=== PATIENT | female | born 1940 | race Caucasian/White ===

== ENCOUNTER 2025-06-07 07:06 | Day surgery (SDC) | payer MEDICARE, OTHER ==
[~2025-06-07] VITALS: Ht 160 cm; Wt 79.7 kg
[2025-06-07] VITALS (12 sets, daily range): BP systolic 102–150; BP diastolic 68–88; PULSE 59–82; RESP 10–14; TEMP 97.9; O2SAT 94–98
--- NOTE | 2025-06-07 07:35 | ELECTROCARDIOGRAPH REPORT ---
[facility] Test Date: 2025-06-07 Test Time: 07:28:50 Pat Name: MIKE ARGUETA Department: [facility] Patient ID: [facility]-[id number] Room: Gender: F Territory Representative: ISAEL : 1940 Requested By: JUSTIN GUEVARA Order Number: [id number] Reading MD: Dr. Pipo Villagran Measurements Intervals [place] Rate: 86 P: 0 [place]: 0 QRS: 69 QRSD: 84 T: 71 QT: 372 QTc: 445 Interpretive Statements Atrial fibrillation Low voltage, extremity and precordial leads Borderline ST depression, anterolateral leads Electronically Signed On 06-07-2025 12:41:[address] Pipo Villagran Please click the below link to view image of tracing.
[2025-06-07] MEDS ORDERED: ATOR40TA72 PO (07:55)
[2025-06-07] MEDS ORDERED: SERT-432 PO (07:55)
[2025-06-07] MEDS ORDERED: TRAZ-251 PO (07:55)
[2025-06-07] MEDS ORDERED: ASPI-1264 PO (07:55)
[2025-06-07] MEDS ORDERED: DORZ10DR26 EACHEYE (07:57)
[2025-06-07] MEDS ORDERED: LATA2.5D7 EACHEYE (07:57)
[2025-06-07 08:02] LABS: MEAN PLATELET VOLUME 8.6 FL (7.4-10.4); RED CELL DISTRIBUTION WIDTH 15.7 % (11.5-14.5)
[2025-06-07] MEDS: sodium bicarbonate 1meq/ml syr 150 ML in dextrose 5%-water 1,000 ML IV ONE (08:04)
[2025-06-07 08:13] LABS: CREATININE 0.73 MG/DL (0.40-0.90); TOTAL CARBON DIOXIDE 24.9 MMOL/L (24-32); eCRCL 46 ML/MIN; eGFR 76 ML/MIN
[2025-06-07] MEDS ORDERED: iohexol 350 MG/ML 50ML vial IV ONE (08:14)
[2025-06-07] MEDS ORDERED: LIDOcaine 1% 30ml preserv. free vial ONE (08:14)
[2025-06-07] MEDS ORDERED: heparin 1,000unit/ml 10ml vial 10 ML ONE (08:14)
[2025-06-07] MEDS ORDERED: midazolam 1 mg/ML 2ml injection ONE ×2 (08:15→08:51)
[2025-06-07] MEDS ORDERED: fentaNYL/PF 50MCG/1 ML 2ML syringe ONE (08:15)
[2025-06-07 08:29] LABS: INR 1.0 INR
[2025-06-07] MEDS ORDERED: HYDROcodone/acetaminophen 10/325mg tab PO PRN (10:30)
[2025-06-07] MEDS ORDERED: ondansetron/PF 4mg/2ml inj IV PRN (10:30)
[2025-06-07] MEDS ORDERED: HYDROcodone/acetaminophen 5mg/325mg tablet PO PRN (10:30)
--- NOTE | 2025-06-07 10:39 | CARDIOLOGY REPORT ---
DATE OF SERVICE: 06/07/2025 DICTATING PHYSICIAN: JUSTIN GUEVARA DO CARDIAC CATHETERIZATION REPORT REFERRING PHYSICIAN: Orville Davis MD CLINICAL HISTORY: This 85-year-old woman has recently been hospitalized at [facility] in [place] for congestive heart failure. She was in atrial fibrillation. The fibrillation has been controlled. She was adequately diuresed, but an echocardiogram has also demonstrated severe aortic stenosis. She is here today for cardiac catheterization to confirm the presence of and to look for evidence of coronary artery disease. PROCEDURES PERFORMED: * Right heart catheterization * Left heart catheterization * Left ventriculography * Selective coronary arteriography * Percutaneous arteriotomy closure (Perclose) * 45 minutes conscious sedation and supervision DESCRIPTION OF PROCEDURE: The patient was sedated with fentanyl and Versed. He was then prepared and draped in the usual manner. The right inguinal area was liberally infiltrated with 1% lidocaine. Using a micropuncture technique, an 8-Greek sheath was placed in the common femoral vein and a 7F sheath was placed in the common femoral artery. 3000 units of heparin were given. Right heart catheterization was performed using a 7.5-Greek [place]-Tomy catheter. Cardiac output was determined by thermal dilution technique. Left heart catheterization and left ventriculography were performed using a Arena pigtail catheter. Coronary arteriography was performed using 6-Greek #4 left and right Mario catheters. The arterial puncture site was successfully Perclosed. Direct pressure was applied to the venous access site. RESULTS: HEMODYNAMIC DATA: The mean right atrial pressure was 14 mmHg. Right ventricular pressure was 40/17 mmHg. Mean pulmonary capillary wedge pressure was 20 mmHg. Left ventricular end-diastolic pressure was 20 mmHg. Pulmonary arterial pressure was 43/22 mmHg. Cardiac output by thermal dilution technique was 3.2 liters per minute. There was a 19 mm simultaneously recorded gradient across the aortic valve. The calculated valve area was 0.72 cm2. LEFT VENTRICULOGRAM: The left ventriculogram was technically satisfactory. In the setting of atrial fibrillation, the visually estimated ejection fraction was about 40%. CORONARY ARTERIOGRAPHY: The coronary arteriograms were technically satisfactory. The patient had a right dominant system. LEFT MAIN CORONARY ARTERY: The left main was a large unobstructed vessel bifurcating into the left anterior descending and circumflex coronary arteries. LEFT ANTERIOR DESCENDING CORONARY ARTERY: The LAD was a large transapical vessel with a medium-sized first diagonal taking its origin proximally. There were no other diagonals of any significant size and the LAD had no obstructive lesions. CIRCUMFLEX CORONARY ARTERY: The circumflex was a large vessel immediately bifurcating into an obtuse marginal that had the distribution of an intermediate artery. This vessel was medium in size and not obstructed. There was a very large second obtuse marginal and a very small and short third obtuse marginal. There were no posterolateral branches. There were no obstructive lesions in the entire circumflex coronary system. RIGHT CORONARY ARTERY: The right coronary artery was a large main stem vessel. There was a medium-sized relatively short posterior descending branch, a small caliber first posterolateral branch and a small to medium-sized second posterolateral. There were no obstructive lesions in the right coronary artery. CONCLUSIONS: * Severe aortic stenosis manifested as a valve area of 0.72 cm2. * At most mild pulmonary hypertension. Pulmonary arterial pressure was 43/22 mmHg. * Left ventricular function was moderately reduced. There was generalized mild hypokinesis and an estimated LVEF of 40% in the setting of atrial fibrillation. * No obstructive coronary artery disease. PLAN: Ongoing medical therapy with referral to consideration of TAVR. JUSTIN GUEVARA DO TID: [id number] RECEIPT: [id number] EDWARD/KYLEE
[2025-06-07] MEDS ORDERED: metoprolol tartrate 1mg/ml inj IV PRN (13:35)
[2025-06-07] MEDS ORDERED: IODIXANOL 320 MG/ML INFUS..BTL 100ML IV ONE (14:15)
--- NOTE | 2025-06-08 11:40 | RADIOLOGY REPORT ---
Procedure: CT CTA TAVR Reason for study/Clinical History: TAVR consult, aortic stenosis Comparison Study: None Exam Date: 06/07/2025 02:16 PM TECHNIQUE: Multiplanar reformatted images were generated from volumetric data acquired on a multidetector CT scanner. Cardiac gating was utilized. Arterial phase images were obtained through the chest, abdomen and pelvis following intravenous administration of contrast material. 150 mL visipaque [address] dose reduction techniques were utilized. 3-D reconstructions were performed on an independent workstation. FINDINGS: Vascular: Aortic measurements: Aortic annulus: 25.6 x 20.9 mm Sinus of valsalva: right cusp findings 27.7 mm, left cusp 30.6 mm, non-coronary cusp 29.3 mm Right coronary distance: 15.4 mm Left coronary distance: 16.[address] junction 24.9 mm Ascending aorta 35.2 mm Aortic arch 26.7 mm Descending aorta 24.8 mm Minimal abdominal aorta 15.0 mm Right common iliac 8.23 mm, tortuosity index 1.08 Left common iliac 8.38 mm, tortuosity index 1.10 There is normal caliber of aorta. No aortic dissection. Aortic arch anatomy is interventional . No exophytic calcified or soft plaque. Eccentric plaque is identified throughout the aorta. There is normal dimension of the main pulmonary artery. Heart is normal in size. Mild coronary artery calcification. No pericardial effusion. Mediastinum: There is no significant intrathoracic or axillary lymphadenopathy by CT size criteria. Esophagus is patulous with mild diffuse circumferential thickening which may be seen with reflux esophagitis. Lungs: Expiratory phase appearance of the lungs. Respiratory motion artifact. There is an 8 mm subpleural right lower lobe nodule. 15.5 x 16.8 mm left suprahilar nodule. Pleura: No effusion or pneumothorax. Chest wall: There is a 2.3 cm left thyroid lesion, incompletely characterized by CT. Abdomen and Pelvis: Liver: Normal in appearance. Gallbladder: Layering tiny gallstones. Spleen: Normal in appearance. Pancreas: Normal in appearance. Adrenals: There is a 2.9 x 2.5 cm left adrenal nodule. Right adrenal is within normal limits. Kidneys: Symmetric enhancement with corticomedullary phase differentiation which limits assessment for renal neoplasm. Bowel: No findings of bowel obstruction. Bowel is incompletely evaluated without oral contrast material. Peritoneum: No free air or free fluid. Lymph nodes: No lymphadenopathy by CT size criteria. Pelvic structures: Urinary bladder is distended with high density material, most likely excreted contrast material. Bones: Status post left shoulder arthroplasty. Diffuse osseous demineralization which limits assessment. Remote rib fractures. IMPRESSION: 1. TAVR planning with vascular measurements as described above. 2. No exophytic calcified or soft plaque of the aorta. 3. There is a 16.8 mm left suprahilar lung nodule. 4. Per Fleischner guidelines, recommend further evaluation with PET/CT or tissue sampling. 5. There is a 2.9 cm left adrenal nodule. 6. Recommend further evaluation with CT or MRI adrenal protocol. 7. There is a 2.3 cm left thyroid lesion. 8. Recommend further evaluation with thyroid ultrasound.
== END 2025-06-07 16:15 | disposition home or self-care (01) ==
LOC: SSTAY O 07:06
PROVIDERS: ATTEND Internal Medicine Cardiovascular Disease
DX: I35.0 Nonrheumatic aortic (valve) stenosis (principal); E11.9 Type 2 diabetes mellitus without complications; E78.00 Pure hypercholesterolemia, unspecified; I27.20 Pulmonary hypertension, unspecified; M81.0 Age-related osteoporosis without current pathological fracture; F32.A Depression, unspecified; Z79.01 Long term (current) use of anticoagulants; Z79.899 Other long term (current) drug therapy; Z90.49 Acquired absence of other specified parts of digestive tract
CPT/HCPCS: 36415; 71275; 74174; 75572; 80048; 83735; 85025; 85610; 93005; 93460; 99152; 99153; A6258; C1751; C1760; C1769; C1887; C1894; J1644; J2003; J2250; J3010; J3490; J7030; J7070; Q0163; Q9967; Z7610

== ENCOUNTER 2025-06-17 11:18 | Outpatient (CLI) | payer MEDICARE, OTHER ==
[~2025-06-17] VITALS: Ht 160 cm; Wt 79.2 kg
[~2025-06-17 11:18] MED LIST: ASPI-1264 PO; ATOR40TA72 PO; DORZ10DR26 EACHEYE; LATA2.5D7 EACHEYE; SERT-432 PO; TRAZ-251 PO
[2025-06-17 13:23] VITALS: BP 134/102; PULSE 107; RESP 18; TEMP 97; O2SAT 96
--- NOTE | 2025-06-17 13:47 | CONSULTATION REPORT ---
History of Present Illness Providers to symptomatic aortic stenosis Refering MD: Henry Macias History of Present Illness 85 yo female with HLD and DM presents with progressive c/o fatigue and SOB over the past year requiring hospitalization. She was recently diagnosed with atrial fibrillation. Evaluation revealed critical aortic stenosis and the patient is now seen for evaluation regarding TAVR vs. SAVR. Allergies: Coded Allergies: No Known Allergies (Unverified , 06/07/25) Home Medications Home Medications Active Reported Latanoprost 0.005 % Drops EACHEYE Dorzolamide HCl 2 % Drops EACHEYE Aspirin* (Aspirin) 325 Mg Tablet 1 Tab PO DAILY 30 Days Atorvastatin Calcium 40 Mg Tablet 1 Tab PO QAM Trazodone HCl 50 Mg Tablet 2 Tab PO HS PRN Sertraline HCl 25 Mg Tablet 1 Tab PO DAILY Past Medical History Medical History Comment as per HPI Physical Exam Last Vital Signs Recorded: RN Vital Signs have been reviewed: Yes, Temperature: 97.0, Source: Temporal, Heart Rate: 107, Respiratory Rate: 18, BP: 134/102, Pulse Oximetry: 96, Weight: 79.200 General Appearance: alert, no apparent distress Neck: normal inspection Respiratory: lungs clear Chest: no accessory muscle use Cardiovascular: no edema, systolic murmur, irregularly irregular Extremities: normal range of motion, non-tender, no edema Neurologic: oriented x4 Review of Systems ROS ROS Comments: as per HPI Assessment/Plan Additional Plan 85 yo female with HLD and DM presents with progressive c/o fatigue and SOB over the past year requiring hospitalization. She was recently diagnosed with atrial fibrillation. Evaluation revealed critical aortic stenosis and the patient is now seen for evaluation regarding TAVR vs. SAVR. Echocardiogram shows an ROBERTO of 0.7 cm2 with a PV of 3m/s. EF of 40% and may account for low PV. I do not have a dimensionless index. I discussed with the patient and her daughter regarding options if AVR done for TAVR vs. SAVR. She does not want SAVR but will undergo emergency replacement if necessary. Dr. Macias will schedule for TAVR if appropriate. LEIDY TORO MD Jun 17, 2025 13:47
--- NOTE | 2025-06-17 15:17 | VASCULAR REPORT ---
Carotid Duplex Date: 06/17/2025 12:41 PM Clinical History: Preop TAVR Comparison: None Technique: Duplex Doppler evaluation of the extracranial carotid and vertebral arteries including color Doppler and spectral/pulsed waveform analysis was performed. Findings: Indications Preop for TAVR. Doppler Spectral Velocity Analysis Right Left pCCA 61/19 cm/s pCCA 60/15 cm/s dCCA 58/13 cm/s dCCA 44/17 cm/s ECA 61/ cm/s ECA 41/ cm/s pICA 34/10 cm/s pICA 35/13 cm/s Kyle 45/16 cm/s Kyle 43/20 cm/s dICA 56/24 cm/s dICA 64/27 cm/s Vert 28/11 cm/s Vert. 52/19 cm/s Subcl. 41/ cm/s Subcl. 64/ cm/s ICA/CCA ICA/CCA 1.07 Real-Time B-Mode Imaging Area Findings Right Left CCA Plaque Composition Intimal thickening Intimal thickening BIF Plaque Composition Intimal thickening Intimal thickening Vertebral Antegrade Antegrade Subclavian Multiphasic Multiphasic CONCLUSION No sonographon evidence of stenosis or occlusion in bilateral carotid arteries. All carotid arteries showed less than 50% stenosis. Antegrade flow noted in bilateral vertebral arteries. Multiphasic flow noted in bilateral subclavian arteries. Reference: Radiology 2003; 229:340-346
--- NOTE | 2025-06-17 21:04 | CONSULTATION REPORT ---
History of Present Illness Providers to CC CC: JUSTIN GUEVARA DO ~ Refering MD: Dr. Guevara History of Present Illness A Very pleasant 85yo woman with Hypertension, Hyperlipidemia, Atrial Fibrillation, Heart failure with mid-range ejection fraction, Severe Symptomatic Aortic Stenosis here to be evaluated in the TAVR clinic. She is accompanied by her daughter. States she has had increased shortness of breath over the last 1 year. She was recently hospitalized, diagnosed with mildly depressed ejection fraction in the setting of new onset atrial fibrillation, and also diagnosed with moderate to severe aortic stenosis. She underwent coronary angiography which was non- obstructive, however, continues to report increased fatigue and dyspnea. Per pt/daughter, can now walk ~ 20 feet before getting short of breath. She previously enjoys walking, hiking and had not had any issues. She denies any chest pain, syncope, dizziness/lightheadedness, bleeding, LE edema. Allergies: Coded Allergies: No Known Allergies (Unverified , 06/07/25) Active prescriptions Atorvastatin Zoloft ?Eliquis 5mg BID Home Medications Home Medications Active Reported Latanoprost 0.005 % Drops EACHEYE Dorzolamide HCl 2 % Drops EACHEYE Aspirin* (Aspirin) 325 Mg Tablet 1 Tab PO DAILY 30 Days Atorvastatin Calcium 40 Mg Tablet 1 Tab PO QAM Trazodone HCl 50 Mg Tablet 2 Tab PO HS PRN Sertraline HCl 25 Mg Tablet 1 Tab PO DAILY Past Medical History Medical History Comment 1. Severe, Symptomatic Aortic Stenosis 2. Hypertensive heart disease 3. Hyperlipidemia 4. Atrial fibrillation 5. Heart failure with mid-range Ejection Fraction Past Surgical History Surgical History Comment Denies any prior heart/lung surgeries Past Social History Social History Comment Denies tobacco or alcohol abuse Physical Exam Last Vital Signs Recorded: Temperature: 97.0, Source: Temporal, Heart Rate: 107, Respiratory Rate: 18, BP: 134/102, Pulse Oximetry: 96, Weight: 79.200 General Appearance: alert, no apparent distress Respiratory: lungs clear Cardiovascular: no edema, systolic murmur (IV/ SM RUSB/LUSB), irregularly irregular Peripheral Pulses: 2+ radial (R), 2+ radial (L) Gastrointestinal: bowels sounds present Extremities: no edema Neurologic: oriented x4 Psychiatric: normal mood/affect Review of Systems ROS ROS Comments: A 14-point review of systems is positive as above. The rest of the review of systems has been done and found to be unrevealing. Results Results/Orders Results/Orders Hg 14.2 HCt 41.9, Cr 0.73 Echocardiogram: LVEF 45-50%, PV 3.7 m/s, MG 35 mmHg, ROBERTO 0.6cm2. Trace AI. Moderate MR Coronary Angiogram: No significant obstructive CAD Carotid Ultrasound: No obstructive carotid disease EKG: Afib, QRS 84ms CT TAVR: Large Caliber vessels amenable to transfemoral transcatheter aortic valve replacement. Sinuses are large enough, coronaries are high enough. Assessment/Plan Problems/Diagnosis: (1) Aortic stenosis Assessment & Plan: A Very pleasant 85yo woman with Hypertension, Hyperlipidemia, Atrial Fibrillation, Heart failure with mid-range ejection fraction, Severe Symptomatic Aortic Stenosis here to be evaluated in the TAVR clinic. She has severe, symptomatic aortic stenosis with NYHA Class III symptoms of dyspnea on exertion, fatigue. Additionally, she has a mildly depressed ejection fraction with persistent Atrial fibrillation. Repeat Echocardiogram today reveals peak velocity of ~ 3.7 m/s (beat-beat variability due to Afib) with a valve area of 0.6 cm2/m2. Patient appears to be a good candidate for a transfemoral transcatheter aortic valve replacement --Will plan for a 23mm valve via either femoral approach, to be scheduled soon. Dr. Guevara We thank you for allowing us the opportunity to help with the patient. They will see you back in the office shortly. THEODORE WELLS MD Jun 17, 2025 21:04
--- NOTE | 2025-06-18 18:08 | CARDIOLOGY REPORT ---
APPROVED REPORT EXAM: Comprehensive 2D, Doppler, and color-flow Echocardiogram. Patient Location: OUT-PATIENT Blood Pressure: 123 / 76 mmHg Heart Rate: 93-130 bpm Rhythm: ATRIAL FIBRILLATION WITH INTERMITTENT RVR Indications REASSESS AORTIC STENOSIS - ? TAVR KNOWN LFLG SEVERE AORTIC STENOSIS ATRIAL FIBRILLATION WITH RVR SHORT OF BREATH X 3 MOS - HOME O2 - 2L Wellness Manager: Frederick KING MD Previous echo: 04/21/25 [facility] EF: 50%?TDS; ROBERTO 0.7CMSQ; PKV: 3.00; GRAD: ?; LVOT 1.99; Joy; modMR; RVSP: NR 2D Dimensions RVDd 3.0 cm LVOT Diameter 1.88 (1.8-2.4cm) M-Mode Dimensions Left Atrium(MM) 3.86 (2.5-4.0cm) IVSd 0.89 (0.7-1.1cm) LVDd 4.51 (4.0-5.6cm) Aortic Root 2.86 (2.2-3.7cm) PWd 1.11 (0.7-1.1cm) Aortic Cusp Exc 0.57 (1.5-2.0cm) IVSs 1.24 cm LVDs 3.43 (2.0-3.8cm) FS (%) 24 % PWs 1.22 cm ESV(Teich) 48.5 ml LVEF(%) 48 (>50%) Aortic Valve AoV Peak Gary. 369.9 cm/s AoV VTI 74.0 cm AO Peak GR. 53.7 mmHg AO Mean GR. 35 mmHg LVOT VTI 15.69 cm LVOT Peak Gary. 79.2 cm/s ROBERTO (VMAX) 0.60 cm2 ROBERTO (VTI) 0.59 cm2 Tricuspid Valve TR P. Velocity 346 cm/s RAP ESTIMATE 10 mmHg TR Peak Gr. 48 mmHg RVSP 58 mmHg LEFT VENTRICLE Normal LV size with moderately reduced function. Mild concentric hypertrophy. LVEF is 45-50%. (function improves with slower HR). RIGHT VENTRICLE RV is normal size and function. Elevated right heart pressures as noted above. ATRIA The left atrium size is normal. AORTIC VALVE Probable trileaflet AV appears heavily calcified with severe low flow/ low gradient stenosis demonstrated by reduced excursion and increased transvalvular and ascending aorta turbulance. ROBERTO: 0.6cmsq; Pkv:3.70 m/sec; Gradients: 54 / 35 mmHG. Trace insufficiency by color and spectral flow Doppler. Measurements are multi sampled averages due to variable rhythm. Stenosis severity is likely severe, but fails to meet criteria due to low flow / volume, low gradient conditions. MITRAL VALVE Mild MV annular calcification without stenosis. Moderate (2+) regurgitation by color and spectral flow Doppler. TRICUSPID VALVE TV appears structurally normal with moderate regurgitation by color and spectral flow Doppler. PULMONIC VALVE Normal PV without stenosis, physiologic insufficiency by color and spectral flow Doppler. GREAT VESSELS Aortic root is normal in size. Ascending aorta is normal in size. PERICARDIUM Normal pericardium. No effusion. Conclusion Normal LV size with moderately reduced function. Mild concentric hypertrophy. LVEF is 45-50%. (function improves with slower HR). RV is normal size and function. Elevated right heart pressures with an RVSP of 58 mmHg. The left atrium size is normal. Probable trileaflet AV appears heavily calcified with severe low flow/ low gradient stenosis demonstrated by reduced excursion and increased transvalvular and ascending aorta turbulance. ROBERTO: 0.6cmsq; Pkv:3.70 m/sec; Gradients: 54 / 35 mmHG. Trace insufficiency by color and spectral flow Doppler. Measurements are multi sampled averages due to variable rhythm. Stenosis severity is likely severe, but fails to meet criteria due to low flow / volume, low gradient conditions. Mild MV annular calcification without stenosis. Moderate (2+) regurgitation by color and spectral flow Doppler. TV appears structurally normal with moderate regurgitation by color and spectral flow Doppler. Normal PV without stenosis, physiologic insufficiency by color and spectral flow Doppler. Normal pericardium. No effusion.
== END 2025-06-17 23:59 | disposition home or self-care (01) ==
LOC: VAS 11:18
PROVIDERS: ATTEND Internal Medicine Cardiovascular Disease
DX: I08.8 Other rheumatic multiple valve diseases (principal); I35.0 Nonrheumatic aortic (valve) stenosis; R06.02 Shortness of breath; I65.29 Occlusion and stenosis of unspecified carotid artery
CPT/HCPCS: 93306; 93880

== ENCOUNTER 2025-07-01 05:39 | Inpatient (IN) | payer MEDICARE, OTHER ==
[2025-06-24 14:09] LABS: MEAN PLATELET VOLUME 8.1 FL (7.4-10.4); PRE OP HEMATOCRIT 38.1 % (35.0-45.0); PRE OP HEMOGLOBIN 13.1 g/dL (12.0-16.0); PRE OP PLATELET COUNT 276 X10'3 (140-440); PRE OP WHITE BLOOD COUNT 6.0 10'3 (4.8-10.8); RED CELL DISTRIBUTION WIDTH 16.6 % (11.5-14.5)
[2025-06-24 14:17] LABS: LEUKOCYTE ESTERASE ,URINE SMALL (Neg); NITRITES, URINE NEGATIVE (Neg); OCCULT BLOOD,URINE NEGATIVE (Neg)
[2025-06-24 14:23] LABS: UA COLLECTION TYPE NON-SPECIFIED
[2025-06-24 14:24] LABS: AMORPHOUS PHOSPHATES 1+; SQUAMOUS EPITHELIAL CELL,UR FEW /LPF (FEW)
[2025-06-24 14:25] LABS: PRE OP INR 1.0 INR; PRE OP PARTIAL THROMB. TIME 29.0 SECONDS (22-32); PRE OP PROTIME 10.5 SECONDS (9.0-12.0)
--- NOTE | 2025-06-24 14:34 | RADIOLOGY REPORT ---
CHEST RADIOGRAPH INDICATION: PREOP TECHNIQUE: Frontal and lateral view of the chest was obtained COMPARISON: None FINDINGS: Lines and Tubes: None Lungs: Clear Pleura: No effusion. No pneumothorax. Cardiomediastinal contours: Unremarkable Bones: Unremarkable. Left glenohumeral joint hardware s/p reverse total shoulder arthroplasty. IMPRESSION: 1. No evidence of acute disease.
[2025-06-24 14:41] LABS: CREATININE 0.67 MG/DL (0.40-0.90); PRE OP ALT 37 U/L (30-65); PRE OP ANION GAP 9 (8-16); PRE OP AST 23 U/L (10-37); PRE OP BILIRUB, TOTAL 0.7 MG/DL (0.0-1.0); PRE OP GLUCOSE 111 MG/DL (70-104); PRE OP POTASSIUM 3.7 MMOL/L (3.4-5.1); PRE OP SODIUM 143 MMOL/L (135-145); PRO BRAIN NATRIURETIC PEPTIDE 1545 PG/ML (0-450); TOTAL CARBON DIOXIDE 27.9 MMOL/L (24-32); eGFR 83 ML/MIN
--- NOTE | 2025-06-24 14:47 | ELECTROCARDIOGRAPH REPORT ---
[facility] Test Date: 2025-06-24 Test Time: 14:04:18 Pat Name: MIKE ARGUETA Department: PRE/OP CARDIOLOGY Room: Gender: F Shirt Creaser: ELBERT : 1940 Requested By: LUDWIN PURI Order Number: [id number] Reading MD: Dr. Jade Macias Measurements Intervals [place] Rate: 121 P: 0 TN: 0 QRS: 88 QRSD: 82 T: -5 QT: 365 QTc: 518 Interpretive Statements Atrial fibrillation Borderline right axis deviation Low voltage, precordial leads Repolarization abnormality, prob rate related Electronically Signed On 06-24-2025 16:28:[address] Jade Macias Please click the below link to view image of tracing.
[~2025-07-01] VITALS: Ht 160 cm; Wt 79.2 kg
[2025-07-01] VITALS (33 sets, daily range): BP systolic 108–149; BP diastolic 64–102; PULSE 86–118; RESP 12–22; TEMP 97.2–98; O2SAT 94–100
[2025-07-01] MEDS: nitroPRUSSIDE (NIPRIDE) (200MCG/ML) 100ML Drip IV SCH (05:30)
[2025-07-01] MEDS: phenylephrine inj 50 MG in normal saline 250ml IV solN IV SCH (05:30)
[2025-07-01] MEDS: ceFAZolin 2gm/dext,iso 50mL 50 ML IV ONE (05:30)
[2025-07-01] MEDS: ringers solution, lacted 1,000 ML IV SCH ×2 (06:37→07:50)
[2025-07-01] MEDS: VANCOMYCIN/H2O 1.5g/300mL PB 300 ML IV ONE (06:38)
[2025-07-01] MEDS ORDERED: protamine sulfate 10mg/ml inj. ONE (06:47)
[2025-07-01] MEDS ORDERED: LIDOcaine 1% (10mg/ml) 2ml vial ONE (07:45)
[2025-07-01] MEDS ORDERED: morphine 4 MG/ML inj SYRINge IV PRN (07:50)
[2025-07-01] MEDS ORDERED: hydrALAZINE 20mg/ml inj. IV PRN ×2 (07:50→09:40)
[2025-07-01] MEDS ORDERED: labetalol 20mg/4ml (5mg/ml) syringe IV PRN ×2 (07:50→09:40)
[2025-07-01] MEDS ORDERED: ondansetron/PF 4mg/2ml inj IV PRN ×2 (07:50→09:40)
[2025-07-01] MEDS ORDERED: fentaNYL/PF 50MCG/1 ML 2ML syringe IV PRN ×2 (07:50)
[2025-07-01] MEDS ORDERED: fentaNYL/PF 50MCG/1 ML 2ML syringe ONE (08:32)
[2025-07-01] MEDS ORDERED: heparin 1,000 UNITS/NS 500ml 1,500 ML ONE (08:34)
[2025-07-01] MEDS ORDERED: propofol inj 20 ML IV ONE (08:35)
[2025-07-01] MEDS ORDERED: midazolam 1 mg/ML 2ml injection ONE (08:35)
[2025-07-01] MEDS ORDERED: heparin 1,000unit/ml 10ml vial 10 ML ONE (08:48)
[2025-07-01] MEDS ORDERED: magnesium sulf-water 2g/50mL 50 ML IV PRN (09:40)
[2025-07-01] MEDS ORDERED: docusate sod 100mg capsule PO PRN (09:40)
[2025-07-01] MEDS ORDERED: potassium CL 10mEq/100ml bag 100 ML IV PRN (09:40)
[2025-07-01] MEDS ORDERED: magnesium sulf-water 4G/100mL 100 ML IV PRN (09:40)
[2025-07-01] MEDS ORDERED: potassium Cl 20 mEq SR tablet PO PRN (09:40)
[2025-07-01] MEDS ORDERED: potassium Cl 40MEQ/1/2NS 520ml 520 ML IV PRN (09:40)
[2025-07-01] MEDS ORDERED: potassium Cl 20mEq/100mL bag 100 ML IV PRN (09:40)
[2025-07-01] MEDS ORDERED: pantoprazole 40mg Tablet.DR PO PRN (09:40)
[2025-07-01] MEDS ORDERED: ALPRAZolam 0.25mg tablet PO PRN (09:40)
[2025-07-01] MEDS ORDERED: potassium Cl 40MEQ/270ML bag 250 ML IV PRN (09:40)
[2025-07-01] MEDS ORDERED: HYDROcodone/acetaminophen 5mg/325mg tablet PO PRN (09:40)
--- NOTE | 2025-07-01 09:42 | OPERATIVE REPORT ---
Operative Report Providers to CC CC: JUSTIN GUEVARA Date of Procedure: Jul 01, 2025 Pre-Operative Diagnosis: Severe Aortic Stenosis Post-Operative Diagnosis SAME as PRE-Op Procedure Performed 1. Ultrasound-guided access, bilateral femoral vessels. 2. Bilateral femoral angiography. 3. Ascending aortography. 4. Temporary transvenous pacer to the RV apex. 5. Balloon Aortic Valvuloplasty with a 18mm balloon 6. Placement of a 23 mm Tripp S3 Resilia valve. Surgeon: Theodore Macias MD Stage Driver MD Dr. Fernando Garcia MD Anesthesiologist: Rafiq Valdivia Type of Anesthesia: General Findings: Severe Aortic Stenosis Complications None Prosthetics\Implants used: Tripp 23mm S3 Resilia Estimated Blood Loss: Minimal Specimen Removed: None Description of Procedure: The patient was brought to the hatchery laborer in a fasting state. They underwent general anesthesia. Ultrasound was used to guide access to the bilateral femoral vessels, 7-Sammarinese sheath, left femoral artery, 6-Sammarinese sheath, right femoral artery and left femoral vein. Bilateral femoral angiograms were obtained. Heparin was given to maintain an ACT over 250 seconds. Two jaylin-cross Perclose devices were placed on the right. We upsized to an 8- Sammarinese sheath. Two pigtail catheters placed in the ascending aorta. Ascending aortography done to determine the angle of deployment. Temporary transvenous pacer to the RV apex and confirmed capture. We upsized an 8-Sammarinese sheath to a 14-Sammarinese Tripp eSheath on the right. We crossed the aortic valve using a straight stiff exchange length Terumo wire supported by a 6-Sammarinese AL1 catheter. LV AO pressures were recorded. A Badge extra support wire was placed in the left ventricle. Next, an 18mm balloon was brought into position and under rapid ventricular pacing, it was inflated. Subsequently, A 23 mm Tripp S3 Resilia valve was brought to position and under rapid right ventricular pacing was deployed. Post-procedure, there was trivial AI and no residual . Guidewires and balloons were removed at this time. The temporary pacer was removed. The 14-Sammarinese Tripp eSheath was removed and the Perclose devices tied with adequate hemostasis. The arterial sheath on the left was removed and a single Perclose tied. The venous sheath on the left was removed and a single Angioseal used for hemostasis. Protamine was given to reverse the effects of heparin. The patient was stable post-procedure. Good pulses in the legs and no evidence of bleeding, transferred to the PACU in stable condition. HEMODYNAMICS: See procedure log RESULTS: 1. Successful balloon aortic valvuloplasty with a 18 mm balloon. 2. Successful placement of a 23 mm Tripp S3 Resilia valve, right transfemoral approach, two perclose devices. ASA 81mg QD 3. Acute on chronic systolic heart failure, LVEDP 25mmHg. Resume GDMT 4. Afib: Cont rate control Patient will be watched in the recovery area until stable, then transferred to telemetry at that time. THEODORE MACIAS MD Jul 01, 2025 09:42
--- NOTE | 2025-07-01 09:52 | ELECTROCARDIOGRAPH REPORT ---
[facility] Test Date: 2025-07-01 Test Time: 09:51:10 Pat Name: MIKE ARGUETA Department: [facility] IN Room: [place] [address] Gender: F Drop Clipper: ELBERT : 1940 Requested By: THEODORE MACIAS Order Number: [id number] Reading MD: Dr. Jade Macias Measurements Intervals [place] Rate: 118 P: 0 DE: 0 QRS: 85 QRSD: 77 T: 45 QT: 439 QTc: 616 Interpretive Statements Atrial fibrillation Borderline right axis deviation Borderline low voltage, extremity leads Non specific ST depression, anterolateral leads Prolonged QT interval Electronically Signed On 07-01-2025 15:05:[address] Jade Macias Please click the below link to view image of tracing.
[2025-07-01] MEDS: normal saline 1000ml 1,000 ML IV SCH (13:02)
[2025-07-01] MEDS: acetaminophen 1,000mg/100ml IV 100 ML IV PRN (13:03)
--- NOTE | 2025-07-01 15:04 | CARDIOLOGY REPORT ---
APPROVED REPORT EXAM: Focused, limited intraprocedural transthoracic 2D, spectral and color flow Doppler echocardiogram during TAVR deployment. Patient Location: [facility] Blood Pressure: 140/100 mmHg Heart Rate: 110-120s bpm Rhythm: ATRIAL FIBRILLATION Indications SEVERE AORTIC STENOSIS BAV: 18 mm True Dilatation balloon 23 mm Tripp Jeremy 3 Ultra RESILIA Bioprosthetic TAVR KNOWN LFLG SEVERE AORTIC STENOSIS ATRIAL FIBRILLATION SHORTNESS OF BREATH XX3 MONTHS - HOME O2 - 2L Supervisor [employer]: Frederick Hays MD / Interventionalist: Henry Macias MD and Ashlyn Guajardo MD. / Surgeon: Tulio Thompson MD. / Device rep: Roopa Meeks ELS Previous echo: 06/17/25 [facility] (EF 45-50%, ROBERTO 0.6 cmsq, pkV 3.70 m/s, grad 54 / 35 mmHBg, trace AI, mod (2+) MR, mod TR) LEFT VENTRICLE Normal LV size and mildly reduced function. Mild concentric hypertrophy. LVEF is 45-50%. RIGHT VENTRICLE RV appears mildly dilated with normal contractility. RVSP is estimated at 68 mmHg. ATRIA LA appears mildly dilated. AORTIC VALVE Trileaflet AV appears severely calcified with significant stenosis demonstrated by reduced excursion and increased transvalvular and ascending aorta turbulance. ROBERTO: 0.60 cmsq; Pkv: 3.66 m/sec; Gradients: 54 / 31 mmHG. Trace insufficiency. Stenosis severity is likely severe, but fails to meet criteria due to low flow, low gradient conditions. BAV: 18 mm True Dilatation balloon. POST DEPLOYMENT (LOOP: 43): 23 mm Tripp Jeremy 3 Ultra Resilia bioprosthetic TAVR appears well seated with normal function. Trace paravalvular leak present at 12 and 6 o'clock in TTE SAX BASE by color and spectral flow Doppler. ROBERTO is measured at 2.50 cmsq. Peak / mean gradients of 8 / 4 mmHG. Peak velocity is measured at 1.43 m/sec. MITRAL VALVE Mild MV annular calcification without stenosis. Mild regurgitation by color and spectral flow Doppler. TRICUSPID VALVE TV appears structurally normal with moderate regurgitation by color and spectral flow Doppler. PERICARDIUM Normal pericardium. No effusion.
[2025-07-01] MEDS: sod chloride 0.9% 10ml flush syringe IV SCH (16:00)
[2025-07-01] MEDS: metoprolol succinate 25mg (24-HOUR) SR. Tablet PO SCH (17:13)
[2025-07-01] MEDS: ceFAZolin 1GM/D5W- ADD-VANTAGE 50 ML IV SCH (19:39)
[2025-07-01] MEDS: VANCOMYCIN/H2O 1.5g/300mL PB 300 ML IV SCH (21:49)
[2025-07-01] MEDS: latanoprost 0.005% 2.5ml ophthalmic drops EACHEYE SCH (21:51)
[2025-07-01] MEDS: dorzolamide 2% ophthalmic drops 10ml EACHEYE SCH (21:51)
[2025-07-02 02:00] VITALS: BP_SYST 106; BP_SYST 133; BP_DIAS 78; BP_DIAS 92; PULSE 76; PULSE 92; RESP 13; RESP 15; TEMP 97; TEMP 97.4; O2SAT 92; O2SAT 96
[2025-07-02] MEDS: ondansetron/PF 4mg/2ml inj IV PRN (05:05)
[2025-07-02 07:00] VITALS: BP 126/73; PULSE 78; RESP 16; TEMP 97.4; O2SAT 94
[2025-07-02 07:30] LABS: MEAN PLATELET VOLUME 8.2 FL (7.4-10.4); RED CELL DISTRIBUTION WIDTH 17.3 % (11.5-14.5)
[2025-07-02 07:52] LABS: CREATININE 0.68 MG/DL (0.40-0.90); PRO BRAIN NATRIURETIC PEPTIDE 1578 PG/ML (0-450); TOTAL CARBON DIOXIDE 28.6 MMOL/L (24-32); eCRCL 49 ML/MIN; eGFR 82 ML/MIN
[2025-07-02 08:00] VITALS: RESP 16; O2SAT 94
--- NOTE | 2025-07-02 09:02 | ELECTROCARDIOGRAPH REPORT ---
[facility] Test Date: 2025-07-02 Test Time: 09:01:18 Pat Name: MIKE ARGUETA Department: [facility] 3S Room: [place] [address] A Gender: F [employer]ging Press Setter Up: ELBERT : 1940 Requested By: THEODORE WELLS Order Number: [id number] Reading MD: Dr. JOSIAS Isabel Measurements Intervals Hoffman Rate: 70 P: 0 WA: 0 QRS: 79 QRSD: 89 T: 45 QT: 446 QTc: 482 Interpretive Statements Atrial fibrillation Low voltage, extremity and precordial leads Electronically Signed On 07-02-2025 20:54:[address] JOSIAS Isabel Please click the below link to view image of tracing.
--- NOTE | 2025-07-02 09:04 | RADIOLOGY REPORT ---
CHEST RADIOGRAPH INDICATION: s/p TAVR TECHNIQUE: Single frontal view of the chest was obtained COMPARISON: DI CHEST,TWO VIEWS on DOS: 06/24/25 FINDINGS: Lines and Tubes: None Lungs: Congestion Pleura: No effusion. No pneumothorax. Cardiomediastinal contours: Post TAVR Bones: Unremarkable IMPRESSION: Post TAVR with mild congestion.
--- NOTE | 2025-07-02 11:25 | CARDIOLOGY REPORT ---
APPROVED REPORT EXAM: Limited 2D, Doppler, and color-flow Echocardiogram. Patient Location: [facility] Blood Pressure: 133/92 mmHg Heart Rate: 97 bpm Indications ONE DAY FOLLOW-UP TAVR 23 mm Tripp Jeremy 3 Ultra RESILIA Bioprosthetic TAVR Legal Word Processor: Frederick Hays MD Previous echo: 07/01/25, [facility], EF: 45-50; ROBERTO: 2.50; GRAD: 8 / 4; Peak v: 1.43 2D Dimensions IVSd 0.9 (0.7-1.1cm) LVDd 3.6 cm PWd 0.9 (0.7-1.1cm) IVSs 1.4 (0.8-1.2cm) LVDs 2.8 (2.5-4.0cm) PWs 1.3 (0.8-1.2cm) LVOT Diameter 2.30 (1.8-2.4cm) LVEF(%) 48.2 (>50%) IVC 18.23 mm FS (%) 23.7 % SV 26.7 ml CO 2.0 L/min M-Mode Dimensions Left Atrium(MM) 3.38 (2.5-4.0cm) Aortic Root 2.31 (2.2-3.7cm) Aortic Valve AoV Peak Gary. 169.6 cm/s AoV VTI 37.6 cm AO Peak GR. 11.5 mmHg AO Mean GR. 7 mmHg LVOT VTI 22.75 cm LVOT Peak Gary. 121.0 cm/s ROBERTO(VTI)/BSA 2.51 cm2/m2 ROBERTO (VTI) 2.51 cm2 AV DI 0.60 % Tricuspid Valve TR P. Velocity 279 cm/s RAP ESTIMATE 10 mmHg TR Peak Gr. 31 mmHg RVSP 41 mmHg LEFT VENTRICLE Normal LV size and wall thickness. Overall systolic function is mildly decreased. LVEF is 45-50%. RIGHT VENTRICLE Right ventricle is moderately dilated with decreased function. Elevated right heart pressures with an RVSP of 41 mmHg. ATRIA The left atrium size is normal. AORTIC VALVE 23 mm Tripp Jeremy 3 Ultra Resilia bioprosthetic TAVR appears well seated with normal function. Trace paravalvular leak present at 12 o'clock in TTE SAX BASE by color and spectral flow Doppler. ROBERTO is measured at 2.51 cmsq. Peak / mean gradients of 11 / 7 mmHG. Peak velocity is measured at 1.70 m/sec. MITRAL VALVE Mild mitral annular calcification without stenosis. Mild regurgitation by color and spectral flow Doppler. TRICUSPID VALVE The tricuspid valve is normal in structure with moderate regurgitation by color and spectral flow Doppler. GREAT VESSELS The aortic root is normal in size. The IVC is normal in size and collapses >50% with inspiration. PERICARDIUM Normal pericardium. No effusion. Conclusion Normal LV size and wall thickness. Overall systolic function is mildly decreased. LVEF is 45-50%. Right ventricle is moderately dilated with decreased function. Elevated right heart pressures with an RVSP of 41 mmHg. The left atrium size is normal. 23 mm Tripp Jeremy 3 Ultra Resilia bioprosthetic TAVR appears well seated with normal function. Trace paravalvular leak present at 12 o'clock in TTE SAX BASE by color and spectral flow Doppler. ROBERTO is measured at 2.51 cmsq. Peak / mean gradients of 11 / 7 mmHG. Peak velocity is measured at 1.70 m/sec. Mild mitral annular calcification without stenosis. Mild regurgitation by color and spectral flow Doppler. The tricuspid valve is normal in structure with moderate regurgitation by color and spectral flow Doppler. Normal pericardium. No effusion.
[2025-07-02] MEDS ORDERED: METO50TA7 PO (15:06)
--- NOTE | 2025-07-02 18:53 | DISCHARGE SUMMARY ---
Discharge Summary Providers to CC ~ Discharge Summary Admission Diagnosis: Severe Aortic Stenosis Hospital Course DATE OF ADMISSION: 07/01/25 DATE OF DISCHARGE: 07/02/25 Discharge Diagnosis\Comment: Severe aortic stenosis status post TAVR Operations\Procedures: 1. Ultrasound-guided access, bilateral femoral vessels. 2. Bilateral femoral angiography. 3. Ascending aortography. 4. Temporary transvenous pacer to the RV apex. 5. Balloon Aortic Valvuloplasty with a 18mm balloon 6. Placement of a 23 mm Tripp S3 Resilia valve. Consultants: No consultants Complications: No complications Condition on DC: Stable New Medications: Metoprolol Succinate* (Toprol Xl*) 50 Mg Tab.sr.24h 1 TAB PO DAILY for 30 Days, #30 TAB Continued Medications: Aspirin* (Aspirin*) 325 Mg Tablet 1 TAB PO DAILY for 30 Days, #30 TAB Atorvastatin Calcium (Atorvastatin Calcium) 40 Mg Tablet 1 TAB PO QAM Dorzolamide HCl (Dorzolamide HCl) 2 % Drops 1 DROP EACHEYE BID Latanoprost (Latanoprost) 0.005 % Drops 1 DROP EACHEYE HS Sertraline HCl (Sertraline HCl) 25 Mg Tablet 1 TAB PO DAILY Trazodone HCl (Trazodone HCl) 50 Mg Tablet 2 TAB PO HS PRN for sleep Discharge Summary: Patient with past medical history severe aortic stenosis. Presented for planned TAVR. Underwent placement of a 23 mm Tripp S3 resilient valve via the right transfemoral approach with Dr. Ja Guajardo and Dr. Colette Macias. Please see Dr. Colette Macias's dictation for further details on the procedure. She tolerated the procedure well. Was monitored overnight in the telemetry unit. Did develop atrial fibrillation with rapid ventricular response with ambulating which was treated with metoprolol succinate. She tolerated well. At time of discharge heart rate is controlled. She is hemodynamically stable. Continues to have some dyspnea when she ambulates. No chest pain or pressure. No dizziness, lightheadedness or syncope. Was asked, but otherwise denies review of systems. Her postoperative testing was reviewed by Dr. Ja Guajardo and Dr. Colette Macias and patient was deemed stable for discharge home. Physical exam prior to discharge: General: Awake, alert, oriented. No apparent distress Neck: Supple. Normal range of motion. No JVD Respiratory: Lungs are clear to auscultation bilaterally. No respiratory distress. Chest: Normal shape and size. No accessory muscle use. Cardiovascular: Irregularly irregular. S1-S2. No murmur, gallop, rub. Gastrointestinal: Abdomen is soft. Nontender to palpation. Bowel sounds present. Extremities: No lower extremity edema, cyanosis or clubbing. Femoral cath sites with dressing clean dry and intact. No ecchymosis or swelling. Dorsalis pedis pulses palpable. Neurologic: Alert and oriented x4. Nonfocal Psychiatric: Normal mood and affect. Skin: Normal color. Warm and dry. Plan: Patient is being discharged home in stable condition. She will follow up as scheduled. Activity restrictions reviewed and patient verbalized unders tanding. *Problems/Diagnosis: (1) Acute on chronic heart failure (2) Atrial fibrillation (3) Aortic stenosis Total Time Spent on D/C: Up to 30 Minutes Counseling Services Smoking & Tobacco Cessation: N/A Supervising MD Co-signing Provider: BARBARA Resendiz NP Jul 02, 2025 18:53
== END 2025-07-02 15:26 | disposition home or self-care (01) | DRG 266 ==
LOC: PAS IN 05:39 → PCU 3S 13:11
PROVIDERS: ADMIT Internal Medicine Cardiovascular Disease; ATTEND Internal Medicine Cardiovascular Disease
PROC: B41D1ZZ Fluoroscopy of Aorta and Bilateral Lower Extremity Arteries using Low Osmolar Contrast (ICD-10-PCS; 2025-07-01)
PROC: 02RF38Z Replacement of Aortic Valve with Zooplastic Tissue, Percutaneous Approach (ICD-10-PCS; principal; 2025-07-01 08:28)
DX: I35.0 Nonrheumatic aortic (valve) stenosis (principal); Z00.6 Encounter for examination for normal comparison and control in clinical research program; I50.23 Acute on chronic systolic (congestive) heart failure; I48.91 Unspecified atrial fibrillation
CPT/HCPCS: 33361; 36415; 71045; 71046; 76937; 80053; 81001; 82948; 83735; 83880; 85025; 85347; 85610; 85730; 86885; 86900; 86901; 86920; 87081; 87088; 93005; 93308; A4615; A4618; A6258; A6449; C1756; C1760; C1769; C1894; G0378; J0131; J0690; J1644; J2003; J2250; J2371; J2405; J2704; J2720; J3010; J3375; J3490; J7030; J7040; J7050; J7120; Q9967